=== PATIENT | female | born 1965 | race Caucasian/White ===

== ENCOUNTER 2017-01-21 08:57 | Day surgery (SDC) | payer BC ==
[2017-07-08] MEDS ORDERED: PRILOSEC40 MG PO (11:37)
[2017-07-08] MEDS ORDERED: TUMSROLL PO (11:38)
[2017-07-08] MEDS ORDERED: VITAMIN D31000 UNIT PO (11:38)
[2017-07-08] MEDS ORDERED: LIBRAX PO (11:38)
[2017-07-08] MEDS ORDERED: TYLENOL COLD & FLU PO (12:00)
== END 2017-01-22 02:44 | disposition home or self-care (01) ==
LOC: DMU 08:57
PROVIDERS: Internal Medicine Gastroenterology
PROC: 4A1B78Z Monitoring of Gastrointestinal Motility, Via Natural or Artificial Opening (ICD-10-PCS; principal; 2017-01-21 09:00)
DX: K21.9 Gastro-esophageal reflux disease without esophagitis (principal); K44.9 Diaphragmatic hernia without obstruction or gangrene; I10 Essential (primary) hypertension; K57.32 Diverticulitis of large intestine without perforation or abscess without bleeding; E86.0 Dehydration; R50.9 Fever, unspecified; Z88.8 Allergy status to other drugs, medicaments and biological substances; Z88.1 Allergy status to other antibiotic agents
CPT/HCPCS: 71020; 74176; 80053; 81001; 85025; 87040; 93005; 96361; 96365; 99285; A9270-GY; C1894; J1956

== ENCOUNTER 2017-01-21 22:52 | Emergency (ER) | payer BC ==
[2017-01-21 21:48] LABS: BASOPHILS 0.2 %; BASOPHILS ABSOLUTE 0.02 10/3/uL (0.0-0.16); EOSINOPHILS 0.1 %; EOSINOPHILS ABSOLUTE 0.01 10/3/uL (0.0-0.53); ER CBC TAT 0 Hrs 10 Mins; HEMATOCRIT 42.6 % (36.0-48.0); HEMOGLOBIN 14.4 g/dL (12.0-16.0); IMMATURE GRANULOCYTES 0.2 %; IMMATURE GRANULOCYTES ABSOLUTE 0.02 10/3/uL (0.0-0.11); LYMPHOCYTES 11.2 %; LYMPHOCYTES ABSOLUTE 1.26 10/3/uL (0.67-4.30); MANUAL DIFF NO %; MEAN CORPUS HGB CONC 33.8 g/dL (32.0-36.0); MEAN CORPUSCULAR VOLUME 94.7 fL (80-100); MEAN PLATELET VOLUME 9.9 fL (9.2-13.0); NEUTROPHILS 80.3 %; NEUTROPHILS ABSOLUTE 9.01 10/3/uL (2.02-8.40); PLATELET COUNT 242 10/3/uL (150-400); WHITE BLOOD CELLS 11.2 10/3/uL (4.5-10.5)
[2017-01-21 21:50] LABS: ASCORBIC ACID (UR NOT ORDER) NEG (NEG); BILIRUBIN, URINE NEGATIVE (NEG); ER URINALYSIS TAT 0 Hrs 12 Mins; KETONE, URINE NEGATIVE (NEG); LEUKOCYTE ESTERASE(NOT OR NEG (NEG); NITRITE (URINE) NEG (NEG); WBC (NOT ORDERED) (RFLEX) < 1 (0-5)
[2017-01-21 22:08] LABS: ALBUMIN 4.4 G/DL (3.5-5.0); CHLORIDE, SERUM 104 MMOL/L (96-112); CO2 (CARBON DIOXIDE) 27 MMOL/L (24-34); CREATININE 0.84 MG/DL (0.55-1.02); GFR AFRICAN AMERICAN 93 ML/MIN (>=60); GFR NON AFRICAN AMERICAN 80 ML/MIN (>=60); GLUCOSE, SERUM 94 MG/DL (60-99); POTASSIUM, SERUM 3.9 MMOL/L (3.5-5.3); SGOT(AST) 19 U/L (5-40); SGPT(ALT) 26 U/L (5-65); SODIUM, SERUM 140 MMOL/L (135-148); TOTAL PROTEIN 7.9 G/DL (6.0-8.5)
[2017-01-21 22:09] LABS: A/G RATIO 1.3 (0.7-1.9); ALKALINE PHOSPHATASE 108 U/L (45-117); BUN (BLOOD UREA NITROGEN) 9 MG/DL (6-23); GLOBULIN 3.5 G/DL (2.5-4.1)
[2017-07-08] MEDS ORDERED: PRILOSEC40 MG PO (11:37)
[2017-07-08] MEDS ORDERED: LIBRAX PO (11:38)
[2017-07-08] MEDS ORDERED: VITAMIN D31000 UNIT PO (11:38)
[2017-07-08] MEDS ORDERED: TUMSROLL PO (11:38)
[2017-07-08] MEDS ORDERED: TYLENOL COLD & FLU PO (12:00)
== END 2017-01-22 02:44 | disposition home or self-care (01) ==
LOC: ER 22:52
PROVIDERS: Emergency Medicine
DX: K57.32 Diverticulitis of large intestine without perforation or abscess without bleeding (principal); E86.0 Dehydration; R50.9 Fever, unspecified; Z88.8 Allergy status to other drugs, medicaments and biological substances
CPT/HCPCS: 71020; 74176; 80053; 81001; 85025; 87040; 93005; 96361; 96365; 99285; J1956